=== PATIENT | male | born 1960 | race Two or more races ===

== ENCOUNTER 2017-10-21 07:40 | Emergency (ER) | payer MEDICAID ==
[~2017-10-21] VITALS: Ht 185.4 cm; Wt 143.2 kg
[~2017-10-21 07:40] MED LIST: CARV25TA2 PO; CHON400C PO; COU5T PO; DIGO250T77 PO; FURO-149 PO; GLUC15006 PO; LISI-222 PO; METF500T7 PO; POTA20TA84 PO; TRAM50TA2 PO
[2017-10-21 08:16] LABS: BASOPHILS % (AUTO) 0.4 % (0-1); EOSINOPHILS # (AUTO) 0.2 X10'3 (0-0.9); EOSINOPHILS % (AUTO) 3.2 % (0-6); HEMATOCRIT 37.9 % (42.0-52.0); HEMOGLOBIN 12.4 g/dl (14.0-17.9); LYMPHOCYTES % (AUTO) 16.5 % (21-51); MEAN CORPUSCULAR HEMOGLOBIN 27.3 PG (27.0-31.0); MEAN CORPUSCULAR HGB CONC 32.7 % (33.0-36.5); MEAN CORPUSCULAR VOLUME 83.5 FL (78-98); MONOCYTES # (AUTO) 0.7 X10'3 (0-0.9); MONOCYTES % (AUTO) 12.2 % (2-12); NEUTROPHILS % (AUTO) 67.7 % (42-75); PLATELET COUNT 52 X10'3 (140-440); RED BLOOD COUNT 4.53 X10'6 (4.70-6.10); RED CELL DISTRIBUTION WIDTH 19.5 % (11.5-14.5); WHITE BLOOD COUNT 5.9 X10'3 (4.5-11.0)
[2017-10-21 08:29] LABS: ACANTHOCYTES 1+; ANISOCYTOSIS 2+; ELLIPTOCYTES 2+; LARGE PLATELETS FEW; PLATELET ESTIMATE DECREASED; TARGET CELLS 1+
[2017-10-21 08:35] LABS: ALANINE AMINOTRANSFERASE 24 U/L (12-78); ALBUMIN 3.5 G/DL (3.4-5.0); ALKALINE PHOSPHATASE 66 IU/L (46-116); ANION GAP 7 (8-16); ASPARTATE AMINO TRANSFERASE 31 U/L (10-37); BILIRUBIN,TOTAL 1.3 MG/DL (0.1-1.0); BLOOD UREA NITROGEN 18 MG/DL (7-18); CALCIUM 8.9 MG/DL (8.5-10.1); CHLORIDE 104 MMOL/L (99-107); CREATININE 1.38 MG/DL (0.60-1.10); GLUCOSE 124 MG/DL (70-104); SODIUM 141 MMOL/L (135-145); TOTAL CARBON DIOXIDE 29.9 MMOL/L (24-32); TOTAL PROTEIN 7.1 G/DL (6.4-8.2); eGFR 53 ML/MIN
[2017-10-21 08:37] LABS: INR 1.9 INR; PARTIAL THROMBOPLASTIN TIME 29 SECONDS (22-32); PROTHROMBIN TIME 19.7 SECONDS (9.0-12.0)
[2017-10-21] MEDS ORDERED: potassium Cl 20 mEq SR tablet PO STA (08:48)
[2017-10-21 09:08] VITALS: BP 129/101
[2017-10-21] MEDS ORDERED: furosemide 20MG tablet PO ONE (09:30)
== END 2017-10-21 09:40 | disposition home or self-care (01) ==
LOC: ER 07:41
DX: I50.9 Heart failure, unspecified (principal); E87.6 Hypokalemia; R60.0 Localized edema; I48.91 Unspecified atrial fibrillation; E11.9 Type 2 diabetes mellitus without complications; G89.29 Other chronic pain; Z95.0 Presence of cardiac pacemaker; Z79.01 Long term (current) use of anticoagulants; Z79.899 Other long term (current) drug therapy
CPT/HCPCS: 36415; 71045; 80053; 83880; 84484; 85025; 85610; 85730; 93005; 99285

== ENCOUNTER 2017-11-29 16:18 | Inpatient (IN) | payer MEDICAID ==
[~2017-11-29] VITALS: Ht 185.4 cm; Wt 132.1 kg
[2017-11-29 16:48] LABS: BASOPHILS # (AUTO) 0.1 X10'3 (0-0.2); BASOPHILS % (AUTO) 0.8 % (0-1); EOSINOPHILS # (AUTO) 0.1 X10'3 (0-0.9); EOSINOPHILS % (AUTO) 0.8 % (0-6); HEMATOCRIT 39.3 % (42.0-52.0); HEMOGLOBIN 12.6 g/dl (14.0-17.9); LYMPHOCYTES # (AUTO) 0.8 X10'3 (1.1-4.8); LYMPHOCYTES % (AUTO) 8.6 % (21-51); MEAN CORPUSCULAR HEMOGLOBIN 27.4 PG (27.0-31.0); MEAN CORPUSCULAR VOLUME 85.6 FL (78-98); MEAN PLATELET VOLUME 10.6 FL (7.4-10.4); MONOCYTES # (AUTO) 0.8 X10'3 (0-0.9); NEUTROPHILS # (AUTO) 7.7 X10'3 (1.8-7.7); NEUTROPHILS % (AUTO) 80.8 % (42-75); PLATELET COUNT 51 X10'3 (140-440); RED BLOOD COUNT 4.59 X10'6 (4.70-6.10); RED CELL DISTRIBUTION WIDTH 19.6 % (11.5-14.5); WHITE BLOOD COUNT 9.5 X10'3 (4.5-11.0)
[2017-11-29 16:59] LABS: INR 3.2 INR; PARTIAL THROMBOPLASTIN TIME 32 SECONDS (22-32); PROTHROMBIN TIME 31.4 SECONDS (9.0-12.0)
[2017-11-29 17:01] LABS: ANISOCYTOSIS 2+; ELLIPTOCYTES 2+; LARGE PLATELETS FEW; PLATELET ESTIMATE DECREASED; POLYCHROMASIA FEW
[2017-11-29 17:02] LABS: ACANTHOCYTES FEW
[2017-11-29 17:06] LABS: ALANINE AMINOTRANSFERASE 39 U/L (12-78); ALBUMIN 3.4 G/DL (3.4-5.0); ALBUMIN/GLOBULIN RATIO 0.9 (1.1-1.5); ALKALINE PHOSPHATASE 68 IU/L (46-116); ANION GAP 8 (8-16); ASPARTATE AMINO TRANSFERASE 70 U/L (10-37); BILIRUBIN,TOTAL 1.8 MG/DL (0.1-1.0); BLOOD UREA NITROGEN 16 MG/DL (7-18); BUN/CREATININE RATIO 12.8 (5.4-32.0); CALCIUM 8.7 MG/DL (8.5-10.1); CHLORIDE 102 MMOL/L (99-107); CREATININE 1.25 MG/DL (0.60-1.10); GLUCOSE 120 MG/DL (70-104); SODIUM 141 MMOL/L (135-145); TOTAL CARBON DIOXIDE 31.1 MMOL/L (24-32); TOTAL PROTEIN 7.1 G/DL (6.4-8.2); eGFR 60 ML/MIN
[2017-11-29] MEDS ORDERED: aspirin 81mg tab.chew PO ONE (17:45)
[2017-11-29] MEDS ORDERED: furosemide 10 MG/1 ML 10ml inj IV ONE (17:45)
[2017-11-29] MEDS ORDERED: nitroGLYCERIN 1gm ointment UD TP ONE (17:50)
[2017-11-29] MEDS ORDERED: potassium Cl 20 mEq SR tablet PO STA (18:22)
[2017-11-29] MEDS ORDERED: magnesium 1gm/100ml D5W IVPB 100 ML IV PRN (18:45)
[2017-11-29] MEDS ORDERED: magnesium 4gm in 100ml NS 100 ML IV PRN (18:45)
[2017-11-29] MEDS ORDERED: potassium Cl 40MEQ/NS 500ml 500 ML IV PRN ×2 (18:45)
[2017-11-29] MEDS ORDERED: mag hydrox/Alum hydrox/simeth 30ml oral suspension PO PRN (18:45)
[2017-11-29] MEDS ORDERED: ondansetron/PF 4mg/2ml inj IV PRN (18:45)
[2017-11-29] MEDS ORDERED: potassium Cl 20 mEq SR tablet PO PRN (18:45)
[2017-11-29] MEDS ORDERED: acetaminophen 325mg tablet PO PRN (18:45)
[2017-11-29] MEDS ORDERED: magnesium hydroxide 30ml (MOM) UD suspension PO PRN (18:45)
[2017-11-29] MEDS ORDERED: magnesium Cl slow-release 64mg tablet PO PRN (18:45)
[2017-11-29] MEDS ORDERED: spironolactone 25 MG tablet PO ONE (18:50)
[2017-11-29] MEDS ORDERED: AMIO200T40 PO (19:00)
[2017-11-29] MEDS ORDERED: MAGN500C16 PO (19:00)
[2017-11-29] MEDS ORDERED: MEXI200C (19:00)
[2017-11-29] MEDS ORDERED: traMADol 50MG tablet PO PRN (19:05)
[2017-11-29] MEDS ORDERED: dextrose ORAL solution 15 GM/59 ML bottle PO PRN ×2 (19:10)
[2017-11-29] MEDS ORDERED: glucagon, human recombinant 1mg kit SUBCUT PRN (19:10)
[2017-11-29] MEDS ORDERED: insulin Lispro (HumaLOG) vial - multi-dose SQ SCH (19:10)
[2017-11-29] MEDS ORDERED: MESSAGE TO PHARMACY PO ONE (19:10)
[2017-11-29] MEDS ORDERED: dextrose 50%-water 50ml dispensing syringe IV PRN ×2 (19:10)
[2017-11-29 19:48] LABS: HEMOGLOBIN A1C 6.5 % (4.5-6.2)
[2017-11-29] MEDS ORDERED: heparin, porcine 5000 units/ml vial SQ SCH (20:00)
[2017-11-29 20:25] VITALS: BP 119/90
[2017-11-29] MEDS: insulin glargine (Lantus) pen - multi-dose SQ SCH (21:00)
[2017-11-29] MEDS: furosemide 10 MG/1 ML 10ml inj IV SCH (21:27)
[2017-11-29] MEDS: potassium Cl 20 mEq SR tablet PO PRN (21:30)
[2017-11-29] MEDS: carVEDilol 12.5mg tablet PO SCH (21:30)
[2017-11-29 22:00] VITALS: BP 122/89
[2017-11-30 02:00] VITALS: BP 128/94
[2017-11-30 06:16] LABS: BASOPHILS % (AUTO) 0.5 % (0-1); EOSINOPHILS # (AUTO) 0.2 X10'3 (0-0.9); HEMATOCRIT 34.8 % (42.0-52.0); HEMOGLOBIN 11.2 g/dl (14.0-17.9); LYMPHOCYTES # (AUTO) 0.7 X10'3 (1.1-4.8); LYMPHOCYTES % (AUTO) 14.9 % (21-51); MEAN CORPUSCULAR HEMOGLOBIN 27.9 PG (27.0-31.0); MEAN CORPUSCULAR HGB CONC 32.3 % (33.0-36.5); MEAN CORPUSCULAR VOLUME 86.3 FL (78-98); MEAN PLATELET VOLUME 10.1 FL (7.4-10.4); MONOCYTES # (AUTO) 0.8 X10'3 (0-0.9); NEUTROPHILS # (AUTO) 3.2 X10'3 (1.8-7.7); NEUTROPHILS % (AUTO) 64.6 % (42-75); RED BLOOD COUNT 4.03 X10'6 (4.70-6.10); RED CELL DISTRIBUTION WIDTH 19.5 % (11.5-14.5)
[2017-11-30 06:20] LABS: PROTHROMBIN TIME 29.9 SECONDS (9.0-12.0)
[2017-11-30 06:23] LABS: ALANINE AMINOTRANSFERASE 31 U/L (12-78); ALBUMIN/GLOBULIN RATIO 0.9 (1.1-1.5); ALKALINE PHOSPHATASE 56 IU/L (46-116); ANION GAP 3 (8-16); ASPARTATE AMINO TRANSFERASE 55 U/L (10-37); BILIRUBIN,TOTAL 1.3 MG/DL (0.1-1.0); BLOOD UREA NITROGEN 15 MG/DL (7-18); BUN/CREATININE RATIO 12.1 (5.4-32.0); CALCIUM 8.5 MG/DL (8.5-10.1); CHLORIDE 104 MMOL/L (99-107); CREATININE 1.24 MG/DL (0.60-1.10); GLUCOSE 93 MG/DL (70-104); POTASSIUM 3.6 MMOL/L (3.5-5.1); SODIUM 143 MMOL/L (135-145); TOTAL CARBON DIOXIDE 36.5 MMOL/L (24-32); TOTAL PROTEIN 6.3 G/DL (6.4-8.2); eGFR 61 ML/MIN
[2017-11-30 06:25] LABS: MAGNESIUM 1.7 MG/DL (1.5-2.4); TROPONIN I 0.09 NG/ML (0.0-0.05)
[2017-11-30 06:32] LABS: HYPOCHROMASIA 1+; PLATELET ESTIMATE DECREASED
[2017-11-30 06:33] LABS: PLATELET COUNT 34 X10'3 (140-440)
[2017-11-30 06:34] LABS: ANISOCYTOSIS 2+; ELLIPTOCYTES 1+
[2017-11-30 07:01] VITALS: BP 112/76
[2017-11-30] MEDS: carVEDilol 12.5mg tablet PO SCH ×2 (07:53→21:02)
[2017-11-30] MEDS: lisinopril 5mg tablet PO SCH (07:53)
[2017-11-30] MEDS: digoxin 250mcg (0.25mg) tablet PO SCH (07:53)
[2017-11-30] MEDS: furosemide 10 MG/1 ML 10ml inj IV SCH ×3 (07:54→21:04)
[2017-11-30] MEDS: K and/or MAG REPLACEMENT MC SCH (07:54)
[2017-11-30] MEDS ORDERED: warfarin 5mg tablet PO SCH (08:00)
[2017-11-30 12:23] VITALS: BP 118/83
[2017-11-30] MEDS ORDERED: guaiFENesin/DM 10ml UD oral syrup PO PRN (15:10)
[2017-11-30] MEDS ORDERED: guaiFENesin/DM oral syrup 5 ML CUP PO PRN (15:20)
[2017-11-30 15:48] VITALS: BP 108/75
[2017-11-30 19:00] VITALS: BP 123/93
[2017-11-30] MEDS ORDERED: warfarin 1mg tablet PO ONE (21:00)
[2017-11-30] MEDS: insulin glargine (Lantus) pen - multi-dose SQ SCH (21:00)
[2017-11-30] MEDS ORDERED: warfarin 5mg tablet PO ONE (21:00)
[2017-11-30 23:00] VITALS: BP 120/89
[2017-12-01 03:00] VITALS: BP 100/70
[2017-12-01 05:45] LABS: BASOPHILS % (AUTO) 0.4 % (0-1); EOSINOPHILS # (AUTO) 0.2 X10'3 (0-0.9); EOSINOPHILS % (AUTO) 4.2 % (0-6); HEMATOCRIT 35.3 % (42.0-52.0); HEMOGLOBIN 11.4 g/dl (14.0-17.9); LYMPHOCYTES # (AUTO) 0.8 X10'3 (1.1-4.8); MEAN CORPUSCULAR HEMOGLOBIN 27.7 PG (27.0-31.0); MEAN CORPUSCULAR HGB CONC 32.2 % (33.0-36.5); MEAN PLATELET VOLUME 10.1 FL (7.4-10.4); MONOCYTES # (AUTO) 0.7 X10'3 (0-0.9); MONOCYTES % (AUTO) 14.7 % (2-12); NEUTROPHILS # (AUTO) 3.1 X10'3 (1.8-7.7); NEUTROPHILS % (AUTO) 63.7 % (42-75); RED BLOOD COUNT 4.11 X10'6 (4.70-6.10); RED CELL DISTRIBUTION WIDTH 19.3 % (11.5-14.5); WHITE BLOOD COUNT 4.9 X10'3 (4.5-11.0)
[2017-12-01 06:17] LABS: INR 3.2 INR; PROTHROMBIN TIME 31.4 SECONDS (9.0-12.0)
[2017-12-01 06:23] LABS: ALANINE AMINOTRANSFERASE 33 U/L (12-78); ALBUMIN 3.1 G/DL (3.4-5.0); ALBUMIN/GLOBULIN RATIO 0.9 (1.1-1.5); ALKALINE PHOSPHATASE 61 IU/L (46-116); ANION GAP 4 (8-16); ASPARTATE AMINO TRANSFERASE 52 U/L (10-37); BILIRUBIN,TOTAL 1.2 MG/DL (0.1-1.0); BLOOD UREA NITROGEN 15 MG/DL (7-18); BUN/CREATININE RATIO 13.2 (5.4-32.0); CALCIUM 8.4 MG/DL (8.5-10.1); CHLORIDE 103 MMOL/L (99-107); CREATININE 1.14 MG/DL (0.60-1.10); GLUCOSE 94 MG/DL (70-104); MAGNESIUM 1.5 MG/DL (1.5-2.4); SODIUM 144 MMOL/L (135-145); TOTAL CARBON DIOXIDE 37.3 MMOL/L (24-32); TOTAL PROTEIN 6.6 G/DL (6.4-8.2); eGFR 67 ML/MIN
[2017-12-01 06:26] LABS: POTASSIUM 2.9 MMOL/L (3.5-5.1)
[2017-12-01 06:32] LABS: PLATELET ESTIMATE DECREASED
[2017-12-01 06:35] LABS: ANISOCYTOSIS 2+; PLATELET COUNT 35 X10'3 (140-440)
[2017-12-01 06:36] LABS: ELLIPTOCYTES 1+; TARGET CELLS FEW
[2017-12-01 07:10] VITALS: BP 104/79
[2017-12-01] MEDS: furosemide 10 MG/1 ML 10ml inj IV SCH ×3 (07:16→20:27)
[2017-12-01] MEDS: potassium Cl 20 mEq SR tablet PO PRN ×3 (07:16→17:10)
[2017-12-01] MEDS: digoxin 250mcg (0.25mg) tablet PO SCH (07:16)
[2017-12-01] MEDS: carVEDilol 12.5mg tablet PO SCH ×2 (07:16→20:25)
[2017-12-01] MEDS: lisinopril 5mg tablet PO SCH (07:23)
[2017-12-01] MEDS: K and/or MAG REPLACEMENT MC SCH (07:23)
[2017-12-01] MEDS ORDERED: methylPREDNISolone sod succ 125mg/2ml vial IV ONE (09:40)
[2017-12-01] MEDS ORDERED: ipratropium/albuterol 3ml nebule NEB PRN (09:50)
[2017-12-01] MEDS: CefTRIAXone/D5W-Rocephin 1gm 50 ML IV SCH (10:33)
[2017-12-01 11:00] VITALS: BP 122/90
[2017-12-01 15:00] VITALS: BP 123/83
[2017-12-01] MEDS: ipratropium/albuterol 3ml nebule NEB SCH ×4 (15:44→23:12)
[2017-12-01] MEDS: methylPREDNISolone sod succ 125mg/2ml vial IV SCH ×2 (16:03→20:25)
[2017-12-01] MEDS: potassium Cl 20 mEq SR tablet PO SCH (17:10)
[2017-12-01 19:00] VITALS: BP 122/85
[2017-12-01] MEDS: lactobacillus rhamnosus 10,000 MMU CELLS/CAPSULE PO SCH (20:25)
[2017-12-01] MEDS: magnesium Cl slow-release 64mg tablet PO SCH (20:26)
[2017-12-01] MEDS: insulin glargine (Lantus) pen - multi-dose SQ SCH (21:00)
[2017-12-01 23:00] VITALS: BP 120/87
[2017-12-02] VITALS (7 sets, daily range): BP systolic 109–125; BP diastolic 74–96
[2017-12-02] MEDS: methylPREDNISolone sod succ 125mg/2ml vial IV SCH (02:14)
[2017-12-02 06:27] LABS: BASOPHILS % (AUTO) 0.1 % (0-1); EOSINOPHILS % (AUTO) 0 % (0-6); HEMATOCRIT 37.6 % (42.0-52.0); HEMOGLOBIN 12.2 g/dl (14.0-17.9); LYMPHOCYTES # (AUTO) 0.5 X10'3 (1.1-4.8); LYMPHOCYTES % (AUTO) 10.3 % (21-51); MEAN CORPUSCULAR HEMOGLOBIN 27.6 PG (27.0-31.0); MEAN CORPUSCULAR HGB CONC 32.5 % (33.0-36.5); MEAN CORPUSCULAR VOLUME 84.7 FL (78-98); MEAN PLATELET VOLUME 11.2 FL (7.4-10.4); MONOCYTES # (AUTO) 0.2 X10'3 (0-0.9); MONOCYTES % (AUTO) 3.1 % (2-12); NEUTROPHILS # (AUTO) 4.6 X10'3 (1.8-7.7); NEUTROPHILS % (AUTO) 86.5 % (42-75); RED BLOOD COUNT 4.43 X10'6 (4.70-6.10); RED CELL DISTRIBUTION WIDTH 18.8 % (11.5-14.5); WHITE BLOOD COUNT 5.3 X10'3 (4.5-11.0)
[2017-12-02 06:31] LABS: PROTHROMBIN TIME 30.1 SECONDS (9.0-12.0)
[2017-12-02 06:49] LABS: ALANINE AMINOTRANSFERASE 33 U/L (12-78); ALBUMIN/GLOBULIN RATIO 0.9 (1.1-1.5); ALKALINE PHOSPHATASE 57 IU/L (46-116); ANION GAP 5 (8-16); ASPARTATE AMINO TRANSFERASE 40 U/L (10-37); BILIRUBIN,TOTAL 1.2 MG/DL (0.1-1.0); BLOOD UREA NITROGEN 15 MG/DL (7-18); BUN/CREATININE RATIO 12.6 (5.4-32.0); CALCIUM 8.3 MG/DL (8.5-10.1); CHLORIDE 101 MMOL/L (99-107); CREATININE 1.19 MG/DL (0.60-1.10); GLUCOSE 140 MG/DL (70-104); MAGNESIUM 1.4 MG/DL (1.5-2.4); SODIUM 142 MMOL/L (135-145); TOTAL CARBON DIOXIDE 35.6 MMOL/L (24-32); TOTAL PROTEIN 6.5 G/DL (6.4-8.2); eGFR 63 ML/MIN
[2017-12-02 07:00] LABS: POTASSIUM 2.7 MMOL/L (3.5-5.1)
[2017-12-02 07:17] LABS: PLATELET COUNT 47 X10'3 (140-440)
[2017-12-02 07:18] LABS: LARGE PLATELETS FEW; PLATELET ESTIMATE DECREASED
[2017-12-02 07:19] LABS: ACANTHOCYTES FEW; ANISOCYTOSIS 2+; ELLIPTOCYTES 1+; HYPOCHROMASIA 1+; POLYCHROMASIA FEW; TARGET CELLS FEW
[2017-12-02] MEDS: ipratropium/albuterol 3ml nebule NEB SCH ×5 (07:21→23:18)
[2017-12-02] MEDS: K and/or MAG REPLACEMENT MC SCH (08:00)
[2017-12-02] MEDS: carVEDilol 12.5mg tablet PO SCH ×2 (09:57→21:20)
[2017-12-02] MEDS: digoxin 250mcg (0.25mg) tablet PO SCH (09:58)
[2017-12-02] MEDS: lactobacillus rhamnosus 10,000 MMU CELLS/CAPSULE PO SCH ×2 (09:58→21:19)
[2017-12-02] MEDS: magnesium Cl slow-release 64mg tablet PO SCH ×2 (09:58→21:20)
[2017-12-02] MEDS: potassium Cl 20 mEq SR tablet PO SCH ×2 (09:59→17:53)
[2017-12-02] MEDS: CefTRIAXone/D5W-Rocephin 1gm 50 ML IV SCH (09:59)
[2017-12-02] MEDS: potassium Cl 20 mEq SR tablet PO PRN ×3 (09:59→17:53)
[2017-12-02] MEDS: lisinopril 5mg tablet PO SCH (09:59)
[2017-12-02] MEDS: predniSONE 20 mg tablet PO SCH (14:13)
[2017-12-02] MEDS: spironolactone 25 MG tablet PO SCH (17:53)
[2017-12-02] MEDS ORDERED: warfarin 1mg tablet PO ONE (21:00)
[2017-12-02] MEDS: insulin glargine (Lantus) pen - multi-dose SQ SCH (21:00)
[2017-12-03 03:00] VITALS: BP 118/85
[2017-12-03 06:00] VITALS: BP 123/93
[2017-12-03 06:03] LABS: BASOPHILS % (AUTO) 0 % (0-1); EOSINOPHILS # (AUTO) 0.1 X10'3 (0-0.9); HEMATOCRIT 38.7 % (42.0-52.0); HEMOGLOBIN 12.7 g/dl (14.0-17.9); LYMPHOCYTES # (AUTO) 0.6 X10'3 (1.1-4.8); LYMPHOCYTES % (AUTO) 5.3 % (21-51); MEAN CORPUSCULAR HEMOGLOBIN 27.9 PG (27.0-31.0); MEAN CORPUSCULAR HGB CONC 32.7 % (33.0-36.5); MEAN CORPUSCULAR VOLUME 85.2 FL (78-98); MEAN PLATELET VOLUME 11.2 FL (7.4-10.4); MONOCYTES # (AUTO) 0.6 X10'3 (0-0.9); MONOCYTES % (AUTO) 5.1 % (2-12); NEUTROPHILS # (AUTO) 10.5 X10'3 (1.8-7.7); NEUTROPHILS % (AUTO) 88.6 % (42-75); PLATELET COUNT 58 X10'3 (140-440); RED BLOOD COUNT 4.54 X10'6 (4.70-6.10); RED CELL DISTRIBUTION WIDTH 19.1 % (11.5-14.5); WHITE BLOOD COUNT 11.8 X10'3 (4.5-11.0)
[2017-12-03 06:09] LABS: INR 3.2 INR; PROTHROMBIN TIME 31.5 SECONDS (9.0-12.0)
[2017-12-03 06:22] LABS: ALANINE AMINOTRANSFERASE 31 U/L (12-78); ALBUMIN 3.2 G/DL (3.4-5.0); ALBUMIN/GLOBULIN RATIO 0.9 (1.1-1.5); ALKALINE PHOSPHATASE 57 IU/L (46-116); ANION GAP 2 (8-16); ASPARTATE AMINO TRANSFERASE 31 U/L (10-37); BILIRUBIN,TOTAL 0.9 MG/DL (0.1-1.0); BLOOD UREA NITROGEN 21 MG/DL (7-18); BUN/CREATININE RATIO 19.6 (5.4-32.0); CALCIUM 8.8 MG/DL (8.5-10.1); CHLORIDE 102 MMOL/L (99-107); CREATININE 1.07 MG/DL (0.60-1.10); GLUCOSE 146 MG/DL (70-104); POTASSIUM 3.7 MMOL/L (3.5-5.1); SODIUM 141 MMOL/L (135-145); TOTAL CARBON DIOXIDE 37.5 MMOL/L (24-32); TOTAL PROTEIN 6.9 G/DL (6.4-8.2); eGFR 72 ML/MIN
[2017-12-03] MEDS: CefTRIAXone/D5W-Rocephin 1gm 50 ML IV SCH (07:23)
[2017-12-03] MEDS: predniSONE 20 mg tablet PO SCH (07:24)
[2017-12-03] MEDS: magnesium Cl slow-release 64mg tablet PO SCH (07:24)
[2017-12-03] MEDS: lisinopril 5mg tablet PO SCH (07:24)
[2017-12-03] MEDS: carVEDilol 12.5mg tablet PO SCH (07:25)
[2017-12-03] MEDS: digoxin 250mcg (0.25mg) tablet PO SCH (07:25)
[2017-12-03] MEDS: lactobacillus rhamnosus 10,000 MMU CELLS/CAPSULE PO SCH (07:25)
[2017-12-03 07:43] LABS: ANISOCYTOSIS 2+; ELLIPTOCYTES 1+; MICROCYTOSIS 1+; PLATELET ESTIMATE DECREASED; POLYCHROMASIA FEW; TARGET CELLS FEW
[2017-12-03] MEDS ORDERED: furosemide 20MG tablet PO SCH (08:00)
[2017-12-03] MEDS: K and/or MAG REPLACEMENT MC SCH (08:00)
[2017-12-03] MEDS: potassium Cl 20 mEq SR tablet PO SCH (08:28)
[2017-12-03] MEDS: spironolactone 25 MG tablet PO SCH (08:28)
[2017-12-03] MEDS: ipratropium/albuterol 3ml nebule NEB SCH (08:46)
[2017-12-03 11:00] VITALS: BP 123/92
[2017-12-03] MEDS ORDERED: PRED20TA PO (12:31)
[2017-12-03] MEDS ORDERED: SPIR25TA PO (12:31)
[2017-12-03] MEDS ORDERED: AMOX-422 PO (12:31)
== END 2017-12-03 13:30 | disposition home or self-care (01) | DRG 194 ==
LOC: ER 16:19 → ED HOLD 18:45 → PCU 3S 20:20
PROVIDERS: ADMIT Internal Medicine; ATTEND Family Medicine
DX: I50.43 Acute on chronic combined systolic (congestive) and diastolic (congestive) heart failure (principal); N17.9 Acute kidney failure, unspecified; D69.59 Other secondary thrombocytopenia; J44.0 Chronic obstructive pulmonary disease with (acute) lower respiratory infection; R18.8 Other ascites; E66.01 Morbid (severe) obesity due to excess calories; J20.9 Acute bronchitis, unspecified; N18.9 Chronic kidney disease, unspecified; I48.91 Unspecified atrial fibrillation; K76.9 Liver disease, unspecified; G89.29 Other chronic pain; E11.9 Type 2 diabetes mellitus without complications; E87.6 Hypokalemia; G47.33 Obstructive sleep apnea (adult) (pediatric); Z68.38 Body mass index [BMI] 38.0-38.9, adult; I25.2 Old myocardial infarction; Z79.84 Long term (current) use of oral hypoglycemic drugs; Z95.0 Presence of cardiac pacemaker; Z79.01 Long term (current) use of anticoagulants; Z87.891 Personal history of nicotine dependence
CPT/HCPCS: 36415; 71045; 76705; 80053; 82948; 83036; 83735; 83880; 84484; 85025; 85610; 85730; 87070; 93005; 93306; 94640; 94760; 96374; 99285; J0696; J1815; J1940; J2930; J7030; J7512